=== PATIENT | female | born 1960 | race Asian ===

== ENCOUNTER 2018-04-28 09:11 | Day surgery (SDC) | payer OTHER ==
[~2018-04-28] VITALS: Ht 154.9 cm; Wt 63.5 kg
[2018-04-28] MEDS ORDERED: LIDOCAINE 2% 100 MG/5 ML UJET TP ONE (09:51)
[2018-04-28] MEDS ORDERED: KETOROLAC 30 MG/ML VIAL ONE (10:13)
== END 2018-04-28 11:05 | disposition home or self-care (01) ==
LOC: MMU 09:11 → MDS 09:11
PROVIDERS: ATTEND Internal Medicine Gastroenterology
DX: Z12.11 Encounter for screening for malignant neoplasm of colon (principal); D12.7 Benign neoplasm of rectosigmoid junction; E78.5 Hyperlipidemia, unspecified; I10 Essential (primary) hypertension; K21.9 Gastro-esophageal reflux disease without esophagitis; Z98.890 Other specified postprocedural states
CPT/HCPCS: 45385; J1885